=== PATIENT | female | born 1995 | race African-American/Black ===

== ENCOUNTER 2017-04-28 15:27 | Emergency (ER) | payer OTHER ==
[~2017-04-28] VITALS: Ht 160 cm; Wt 50.0 kg
[2017-04-28] MEDS ORDERED: IBUPROFEN 400MG TABLET PO ONE (16:00)
[2017-04-28] MEDS ORDERED: KETOROLAC 60MG/2ML VIAL IM ONE (16:00)
[2017-04-28 17:25] VITALS: BP 93/54
== END 2017-04-28 17:43 | disposition home or self-care (01) ==
LOC: ER 15:41
DX: S70.02XA Contusion of left hip, initial encounter (principal); V49.59XA Passenger injured in collision with other motor vehicles in traffic accident, initial encounter; Y93.89 Activity, other specified; Y99.8 Other external cause status; Y92.89 Other specified places as the place of occurrence of the external cause
CPT/HCPCS: 99283

== ENCOUNTER 2017-09-04 10:04 | Emergency (ER) | payer OTHER ==
[~2017-09-04] VITALS: Ht 175.3 cm; Wt 58.0 kg
[2017-09-04 12:40] LABS: CLARITY URINE CLEAR (CLEAR); COLOR URINE YELLOW (YELLOW); GLUCOSE URINE NEGATIVE (NEGATIVE); KETONES URINE NEGATIVE (NEGATIVE); LEUKOCYTE ESTERASE URINE NEGATIVE (NEGATIVE); NITRITE URINE NEGATIVE (NEGATIVE); OCCULT BLOOD URINE NEGATIVE (NEGATIVE); PH URINE 6.5 (4.5-8.0); PROTEIN URINE NEGATIVE (NEGATIVE); SPECIFIC GRAVITY URINE 1.024 (1.005-1.030)
[2017-09-04 14:00] VITALS: BP 96/55
== END 2017-09-04 14:15 | disposition home or self-care (01) ==
LOC: ER 10:04
DX: J20.9 Acute bronchitis, unspecified (principal); Z98.890 Other specified postprocedural states; Z86.73 Personal history of transient ischemic attack (TIA), and cerebral infarction without residual deficits
CPT/HCPCS: 71010; 81003; 81025; 99285

== ENCOUNTER 2018-06-08 10:21 | Emergency (ER) | payer MEDICAID, OTHER ==
[~2018-06-08] VITALS: Ht 170.2 cm; Wt 50.0 kg
[2018-06-08 10:38] VITALS: BP 97/47
[2018-06-08] MEDS ORDERED: HYDROCODONE/ACETAMINOPHEN 5/325MG TABLET PO ONE (11:15)
[2018-06-08] MEDS ORDERED: IBUPROFEN 400MG TABLET PO ONE (11:15)
== END 2018-06-08 11:00 | disposition left against medical advice (07) ==
LOC: ER 10:21
DX: R51 Headache (principal); H53.8 Other visual disturbances; Z86.73 Personal history of transient ischemic attack (TIA), and cerebral infarction without residual deficits
CPT/HCPCS: 99281